=== PATIENT | female | born 1935 | race Caucasian/White ===

== ENCOUNTER 2022-12-30 04:11 | Day surgery (SDC) | payer OTHER ==
[2022-12-26 14:48] VITALS: BMI 28.3
[2022-12-30 07:21] VITALS: RESP 18
[2022-12-30] MEDS ORDERED: IBUPROFEN 400 MG TABLET (FP) PO PRN (07:37)
[2022-12-30] MEDS ORDERED: ACETAMINOPHEN 325 MG TABLET (FP) PO PRN (07:37)
[2022-12-30] MEDS ORDERED: MIDAZOLAM HCL 2 MG/2 ML SINGLE DOSE VIAL ONE (09:20)
[2022-12-30] MEDS ORDERED: PROPOFOL 20 ML ONE (09:20)
[2022-12-30] MEDS ORDERED: ONDANSETRON 4 MG/2 ML VIAL ONE (09:53)
[2022-12-30] MEDS ORDERED: DEXAMETHASONE SOD PHOSPHATE 4 MG/1 ML VIAL ONE (09:53)
[2022-12-30] MEDS ORDERED: ONDANSETRON 4 MG/2 ML VIAL IVPUSH PRN (10:23)
[2022-12-30] MEDS ORDERED: LACTATED RINGERS SOLUTION 1,000 ML IV SCH (10:30)
[2022-12-30 14:07] VITALS: BP 159/72; PULSE 68; TEMP 97.5
== END 2022-12-30 13:53 | disposition home or self-care (01) ==
LOC: JASU-SURG 04:11
PROVIDERS: ATTEND Obstetrics & Gynecology
PROC: 0UBF8ZZ Excision of Cul-de-sac, Via Natural or Artificial Opening Endoscopic (ICD-10-PCS; principal; 2022-12-30 09:00)
PROC: 0UB98ZZ Excision of Uterus, Via Natural or Artificial Opening Endoscopic (ICD-10-PCS; 2022-12-30 09:00)
DX: D25.0 Submucous leiomyoma of uterus (principal); N73.6 Female pelvic peritoneal adhesions (postinfective)
CPT/HCPCS: 88305-TC; 88341-TC; 88342-TC; 94760